=== PATIENT | female | born 1955 | race Caucasian/White ===

== ENCOUNTER → 2018-08-18 | Outpatient (CLI) | payer OTHER ==
[2018-08-18] MEDS: METOPROLOL 100 MG TAB (10:30)
[2018-08-18] MEDS: NITROGLYCERIN AEROSOL (4.9 GM) (11:10)
[2018-08-18] MEDS: SOD CHLORIDE 0.9% 100 ML (11:44)
[2018-08-18] MEDS: IOHEXOL 100 ML (11:45)
== END | disposition home or self-care (01) ==
LOC: C/S 08:41
DX: R94.39 Abnormal result of other cardiovascular function study (principal)
CPT/HCPCS: 75571; 75574